=== PATIENT | male | born 1990 | race Caucasian/White ===

== ENCOUNTER 2019-12-27 09:16 | Emergency (ER) | payer OTHER ==
[~2019-12-27] VITALS: Ht 188 cm; Wt 79.1 kg
--- NOTE | 2019-12-27 09:40 | NUR ---
Pt to ER for sandpaper-like rash all over body x 5 days, RUQ pain & dark urine. Urine collected & sent.
--- NOTE | 2019-12-27 09:42 | NUR ---
TO [facility] FROM [facility]
--- NOTE | 2019-12-27 09:51 | NUR ---
REPORT RECEIVED FROM SANDEEP LAI. [facility]
[2019-12-27] MEDS ORDERED: ACYC-113 PO (09:54)
[2019-12-27 10:15] LABS: MICROSCOPIC NOT IND
[2019-12-27 10:23] LABS: CULTURE INDICATED? NO
[2019-12-27] MEDS ORDERED: SODIUM CHLORIDE FLUSH 10ML SYR IVF ONE (10:30)
[2019-12-27] MEDS ORDERED: SODIUM CHLORIDE 0.9% 1,000ML IVBOLUS ONE (10:30)
[2019-12-27 11:15] LABS: BASOPHILS # (AUTO) 0.03 x10^3/uL (0-0.1); BASOPHILS % (AUTO) 1 % (0-1); EOSINOPHILS # (AUTO) 0.46 x10^3/uL (0-0.4); EOSINOPHILS % (AUTO) 9 % (1-7); LYMPHOCYTES # (AUTO) 0.56 x10^3/uL (1-3.4); LYMPHOCYTES % (AUTO) 11 % (22-44); MD NO; MEAN CORPUSCULAR HEMOGLOBIN 30.4 pg (27.5-34.5); MEAN CORPUSCULAR HGB CONC 33.5 g/dL (33.2-36.2); MEAN CORPUSCULAR VOLUME 90.6 fL (81-97); MEAN PLATELET VOLUME 8.4 fL (7.4-10.4); MONOCYTES # (AUTO) 0.34 x10^3/uL (0.2-0.8); MONOCYTES % (AUTO) 7 % (2-9); NEUTROPHILS # (AUTO) 3.75 x10^3/uL (1.8-6.8); NEUTROPHILS % (AUTO) 73 % (42-75); PLATELET COUNT 265 x10^3/uL (130-400); RED BLOOD COUNT 4.44 x10^6/uL (4.38-5.82); RED CELL DISTRIBUTION WIDTH 14.6 % (9.4-14.8)
[2019-12-27 11:26] LABS: ALANINE AMINOTRANSFERASE 345 U/L (12-78); ALBUMIN 3.7 g/dL (3.4-5.0); ANION GAP 8 mmol/L (5-15); CALCIUM 9.1 mg/dL (8.5-10.1); CHLORIDE 105 mmol/L (98-107); CREATININE 0.88 mg/dL (0.7-1.3)
[2019-12-27 11:28] LABS: ALKALINE PHOSPHATASE 617 U/L (45-117); BILIRUBIN,TOTAL 1.6 mg/dL (0.2-1.0); CREATINE KINASE, TOTAL 33 U/L (39-308); TOTAL PROTEIN 7.9 g/dL (6.4-8.2)
[2019-12-27 11:40] VITALS: BP 134/83
--- NOTE | 2019-12-27 11:41 | NUR ---
PT RESTING IN [facility]. CUP OF WATER PROVIDED.
--- NOTE | 2019-12-27 11:55 | NUR ---
DC ORDERS UP. HOWEVER, DR CHUNG WANTS TO HAVE A GI CONSULT AND LIPASE PRIOR TO DC.
== END 2019-12-27 13:15 | disposition home or self-care (01) ==
LOC: ED 11:22
DX: R10.11 Right upper quadrant pain (principal); R21 Rash and other nonspecific skin eruption; K21.9 Gastro-esophageal reflux disease without esophagitis
CPT/HCPCS: 36415; 76700; 80053; 81003; 82550; 83516; 83605; 83690; 85025; 86308; 86790; 87040; 99284; J7030